=== PATIENT | male | born 1990 ===

== ENCOUNTER 2021-05-14 19:45 | Observation (INO) | payer SELFPAY ==
[~2021-05-14] VITALS: Ht 172 cm; Wt 85.2 kg
--- NOTE | 2021-05-14 19:55 | ED Fall/Injury ---
General Chief Complaint: Trauma EMS/Air Arrival Activat Stated Complaint: FALL Source: patient (PT SPEAKS FAIR BAHRAINI), EMS, spouse ( IN ROOM ON RETURN FROM CT) History of Present Illness Date Seen by Provider: May 14, 2021 Time Seen by Provider: 19:45 Initial Comments PT ARRIVES VIA EMS, CERVICAL COLLAR IN PLACE AND ON BACKBOARD PT HAS BEEN WORKING OUTSIDE SINCE 0600 THIS AM, CLEARING OFF A TREE FROM A ROOF, FROM RECENT STORM. PT WAS COMING DOWN LADDER, AND LADDER FELL OVER, PT FELL APPROXIMATELY 4 FEET FROM GROUND, LANDING ON HIS RIGHT SIDE HIT RIGHT SIDE OF HEAD, RIGHT SHOULDER AND RIGHT THIGH ON GROUND + LOSS OF CONSCIOUSNESS FOR 3 MINUTES, WAS WITNESSED BY CO-WORKERS PT WAS AWAKE AND ALERT WHEN EMS ARRIVED AT THE SCENE, BUT REPEATING THINGS MULTIPLE TIMES. PT C/O ALOT OF PAIN /HEADACHE TO RIGHT SIDE OF HEAD C/O ALOT OF PAIN TO RIGHT SHOULDER ALSO C/O PAIN TO RIGHT THIGH NO VISION CHANGES NO PARESTHESIAS OR MOTOR DEFICITS NO NECK OR BACK PAIN NO NAUSEA/VOMITING NO CHEST PAIN NO SHORTNESS OF BREATH NO ABDOMINAL PAIN LAST TETANUS VACCINE IS UNKNOWN PCP: NONE Allergies and Home Medications Allergies Coded Allergies: No Known Drug Allergies (Unverified , 05/14/21) Patient Home Medication List Home Medication List Reviewed: Yes Review of Systems Review of Systems Constitutional: no symptoms reported Eyes: No Symptoms Reported Ears, Nose, Mouth, Throat: no symptoms reported Respiratory: no symptoms reported; No short of breath Cardiovascular: no symptoms reported; No chest pain Gastrointestinal: no symptoms reported; No abdominal pain, No nausea, No vomiting Genitourinary: no symptoms reported Musculoskeletal: see HPI Skin: other (ABRASIONS TO RIGHT SHOULDER AND RIGHT THIGH) Psychiatric/Neurological: See HPI, Headache; Denies Numbness, Denies Paresthesia, Denies Seizure, Denies Tingling, Denies Weakness Past Lchbmat-Cmnauu-Nlwfuq Hx Past Med/Social Hx: Reviewed and Corrections made Patient Social History Alcohol Use: Denies Use Drug of Choice: DENIES Smoking Status: Never a Smoker Past Medical History Surgeries: Yes Vasectomy Respiratory: No Cardiac: No Neurological: No Genitourinary: No Gastrointestinal: No Musculoskeletal: No Endocrine: No Cancer: No Psychosocial: No Integumentary: No Blood Disorders: No Physical Exam Vital Signs Vital Signs - First Documented 05/14/21 20:00 Pulse 82 Resp 20 B/P (MAP) 151/81 (104) Pulse Ox 99 O2 Delivery Room Air Capillary Refill : Height, Weight, BMI Height: '" Weight: lbs. oz. kg; BMI Method: General Appearance: WD/WN, no apparent distress HEENT: PERRL/EOMI, normal ENT inspection, TMs normal, pharynx normal, other (SWELLING, ABRASION AND TENDERNESS TO RIGHT SAMARITAN AND PARIETAL SCALP) Neck: other (IN CERVICAL COLLAR ON ARRIVAL) Cardiovascular: normal peripheral pulses, regular rate, rhythm, no edema, no murmur Respiratory: chest non-tender, normal breath sounds, no respiratory distress, no accessory muscle use Gastrointestinal: normal bowel sounds, non tender, soft Back: normal inspection, no CVA tenderness, no vertebral tenderness Extremities: other (ABRASION AND BRUISING TO RIGHT SHOULDER, WITH DEFORMITY TO RIGHT SHOULDER WITH AC DROP OFF AND ANTERIOR FULLNESS, ALSO APPEARS TO HAVE SOME SWELLING, AND LIMITED ROM OF RIGHT SHOULDER, DISTAL MOTOR/SENSORY/VASCULAR INTACT. RIGHT LATERAL THIGH WITH ABRASION AND BRUISING, EARLY SWELLING AND MODERATE TENDERNESS. DISTAL MOTOR/SENSORY/VASCULAR INTACT. ) Neurologic/Psychiatric: supervisor hardboard II-XII nml as tested, no motor/sensory deficits, alert, normal mood/affect, oriented x 3 Skin: normal color (PT IS ), warm/dry, other (ABRASIONS AND ECCHYMOSIS TO RIGHT SHOULDER AND RIGHT LATERAL THIGH. ) Procedures/Interventions Splinting and Joint Reduction : Immobilizers: Large Shoulder Progress/Results/Core Measures Results/Orders Lab Results Laboratory Tests Test 05/14/21 19:30 05/14/21 21:09 Range/Units White Blood Count 7.0 4.3-11.0 10^3/uL Red Blood Count 4.08 L 4.30-5.52 10^6/uL Hemoglobin 13.7 13.3-17.7 g/dL Hematocrit 39 L 40-54 % Mean Corpuscular Volume 95 80-99 fL Mean Corpuscular Hemoglobin 34 25-34 pg Mean Corpuscular Hemoglobin Concent 36 32-36 g/dL Red Cell Distribution Width 12.6 10.0-14.5 % Platelet Count 325 130-400 10^3/uL Mean Platelet Volume 9.9 9.0-12.2 fL Sodium Level 140 135-145 MMOL/L Potassium Level 3.5 L 3.6-5.0 MMOL/L Chloride Level 104 98-107 MMOL/L Carbon Dioxide Level 25 21-32 MMOL/L Anion Gap 11 5-14 MMOL/L Blood Urea Nitrogen 19 H 7-18 MG/DL Creatinine 1.00 0.60-1.30 MG/DL Estimat Glomerular Filtration Rate > 60 BUN/Creatinine Ratio 19 Glucose Level 112 H 70-105 MG/DL Calcium Level 9.5 8.5-10.1 MG/DL Corrected Calcium 9.3 8.5-10.1 MG/DL Total Bilirubin 0.3 0.1-1.0 MG/DL Direct Bilirubin 0.1 0.0-0.3 MG/DL Indirect Bilirubin 0.2 MG/DL Aspartate Amino Transf (AST/SGOT) 34 5-34 U/L Alanine Aminotransferase (ALT/SGPT) 27 0-55 U/L Alkaline Phosphatase 95 40-136 U/L Total Protein 7.8 6.4-8.2 GM/DL Albumin 4.2 3.2-4.5 GM/DL Serum Alcohol < 10 <10 MG/DL Urine Color YELLOW Urine Clarity CLEAR Urine pH 7.5 5-9 Urine Specific [place] 1.015 L 1.016-1.022 Urine Protein NEGATIVE NEGATIVE Urine Glucose (UA) NEGATIVE NEGATIVE Urine Ketones NEGATIVE NEGATIVE Urine Nitrite NEGATIVE NEGATIVE Urine Bilirubin NEGATIVE NEGATIVE Urine Urobilinogen 0.2 < = 1.0 MG/DL Urine Leukocyte Esterase NEGATIVE NEGATIVE Urine RBC (Auto) 1+ H NEGATIVE Urine RBC 0-2 /HPF Urine WBC NONE /HPF Urine Squamous Epithelial Cells RARE /HPF Urine Crystals NONE /LPF Urine Bacteria NEGATIVE /HPF Urine Casts NONE /LPF Urine Mucus NEGATIVE /LPF Urine Culture Indicated NO Urine Opiates Screen NEGATIVE NEGATIVE Urine Oxycodone Screen NEGATIVE NEGATIVE Urine Methadone Screen NEGATIVE NEGATIVE Urine Propoxyphene Screen NEGATIVE NEGATIVE Urine Barbiturates Screen NEGATIVE NEGATIVE Ur Tricyclic Antidepressants Screen NEGATIVE NEGATIVE Urine Phencyclidine Screen NEGATIVE NEGATIVE Urine Amphetamines Screen NEGATIVE NEGATIVE Urine Methamphetamines Screen NEGATIVE NEGATIVE Urine Benzodiazepines Screen NEGATIVE NEGATIVE Urine Cocaine Screen NEGATIVE NEGATIVE Urine Cannabinoids Screen NEGATIVE NEGATIVE My Orders Orders - LIVKIRAA K DO Dipht,Pertuss(Acell),Tet Adult (Boostrix (05/14/21 20:00) Ct Head/Face/Cervical Wo (05/14/21 ) Ct Thoracic/Lumbar Spine Wo (05/14/21 ) Chest 1 View, Ap/Pa Only (05/14/21 ) Pelvis (05/14/21 ) Shoulder, Right, 3 Views (05/14/21 ) Hip, Right, 2 Views (05/14/21 ) Femur, Right, 2 Views (05/14/21 ) Cbc No Diff (05/14/21 19:30) Urinalysis (05/14/21 19:30) Alcohol (05/14/21 19:30) Comprehensive Metabolic Panel (05/14/21 19:30) Liver Panel (05/14/21 19:30) Drug Screen Stat (Urine) (05/14/21 20:57) Ed Iv/Invasive Line Start (05/14/21 20:57) Lactated Ringers (Lr 1000 Ml Iv Solution (05/14/21 21:00) Shoulder Immoblizer (05/14/21 21:19) Fentanyl Inj (Sublimaze Injection) (05/14/21 21:22) Medications Given in ED Current Medications Medications Dose Ordered Sig/Eder Route Start Time Stop Time Status Last Admin Dose Admin Diphtheria/ Tetanus/Acell Pertussis 0.5 ml ONCE ONCE IM 05/14/21 20:00 05/14/21 20:01 DC 05/14/21 21:00 0.5 ML Lactated Ringer's 1,000 ml @ 0 mls/hr Q0M ONCE IV 05/14/21 21:00 05/14/21 21:01 DC 05/14/21 21:24 0 MLS/HR Vital Signs/I&O 05/14/21 05/14/21 05/14/21 05/14/21 20:00 20:15 20:30 21:00 Pulse 82 88 84 81 Resp 20 20 21 14 B/P (MAP) 151/81 (104) 151/101 (118) Pulse Ox 99 96 96 98 O2 Delivery Room Air Room Air Room Air Room Air Progress Progress Note : Progress Note NO DETERIORATION IN PT'S CONDITION, BUT STILL REPEATING HIMSELF A LITTLE, FORGETFUL, AND SLIGHTLY UNCOOPERATIVE AT TIMES. Diagnostic Imaging Comments XRAYS--ALL PER RADIOLOGIST REPORTS AT 2105 CXR-- FINDINGS: Frontal view of the chest demonstrates the lungs to be clear. The heart, mediastinum, pulmonary vascularity and visualized bony thorax are normal. IMPRESSION: Negative chest. PELVIS-- FINDINGS: AP view of the pelvis demonstrates no fracture or diastasis. Degenerative changes are seen in the symphysis pubis. IMPRESSION: There is no acute finding. RIGHT SHOULDER-- FINDINGS: Three views of the right shoulder demonstrate normal ossification. No fracture or dislocation is seen. IMPRESSION: Negative right shoulder. RIGHT HIP-- FINDINGS: Two views of the right hip demonstrate normal ossification. No fracture or dislocation is present. IMPRESSION: Normal right hip. FINDINGS: Frontal and lateral views of the right femur demonstrate normal ossification. No fracture or dislocation is present. IMPRESSION: Negative right femur. RIGHT FEMUR-- Reviewed: Reviewed by Nm Departure Communication (Admissions) 2122--SPOKE WITH DR. DOWNS, TRAUMA SURGEON, ACCEPTS PT FOR ADMIT. WILL CONSULT ORTHOPEDIC SURGEON REGARDING SHOULDER INJURY Impression Primary Impression: Fall from ladder Additional Impressions: Concussion with loss of consciousness of 30 minutes or less Right shoulder injury Contusion of right thigh, initial encounter Abrasions of multiple sites Disposition: ADMITTED INPATIENT Condition: Stable Admissions Decision to Admit Reason: Admit from ER (Trauma) Decision to Admit/Date: May 14, 2021 Time/Decision to Admit Time: 21:25 BUNNY PECK DO May 14, 2021 19:55
[2021-05-14] MEDS ORDERED: TETANUS,DIPTH,PERTUSS P/F (BOOSTRIX) 0.5 ML VIAL IM ONE (20:00)
[2021-05-14 20:45] LABS: HEMATOCRIT 39 % (40-54); HEMOGLOBIN 13.7 g/dL (13.3-17.7); MEAN CORPUSCULAR HEMOGLOBIN 34 pg (25-34); MEAN CORPUSCULAR HGB CONC 36 g/dL (32-36); MEAN CORPUSCULAR VOLUME 95 fL (80-99); MEAN PLATELET VOLUME 9.9 fL (9.0-12.2); PLATELET COUNT 325 10^3/uL (130-400)
--- NOTE | 2021-05-14 20:59 | Diagnostic Imaging Report ---
INDICATION: Fell from a ladder. FINDINGS: Frontal view of the chest demonstrates the lungs to be clear. The heart, mediastinum, pulmonary vascularity and visualized bony thorax are normal. IMPRESSION: Negative chest. Dictated by: Dictated on workstation # [id number]
[2021-05-14] MEDS ORDERED: LACTATED RINGERS 1,000 ML IV ONE (21:00)
--- NOTE | 2021-05-14 21:00 | Diagnostic Imaging Report ---
INDICATION: Fell from a ladder, right hip pain. FINDINGS: Two views of the right hip demonstrate normal ossification. No fracture or dislocation is present. IMPRESSION: Normal right hip. Dictated by: Dictated on workstation # [id number]
--- NOTE | 2021-05-14 21:00 | Diagnostic Imaging Report ---
INDICATION: Fell from a ladder, pelvic pain. FINDINGS: AP view of the pelvis demonstrates no fracture or diastasis. Degenerative changes are seen in the symphysis pubis. IMPRESSION: There is no acute finding. Dictated by: Dictated on workstation # [id number]
--- NOTE | 2021-05-14 21:00 | Diagnostic Imaging Report ---
INDICATION: Fell from a ladder, right shoulder pain. FINDINGS: Three views of the right shoulder demonstrate normal ossification. No fracture or dislocation is seen. IMPRESSION: Negative right shoulder. Dictated by: Dictated on workstation # [id number]
[2021-05-14 21:04] LABS: ALANINE AMINOTRANSFERASE 27 U/L (0-55); ALBUMIN 4.2 GM/DL (3.2-4.5); ALKALINE PHOSPHATASE 95 U/L (40-136); BILIRUBIN,DIRECT 0.1 MG/DL (0.0-0.3); BILIRUBIN,INDIRECT 0.2 MG/DL; BILIRUBIN,TOTAL 0.3 MG/DL (0.1-1.0); BUN/CREATININE RATIO 19; CALCIUM 9.5 MG/DL (8.5-10.1); CARBON DIOXIDE 25 MMOL/L (21-32); CHLORIDE 104 MMOL/L (98-107); GFR ESTIMATED > 60; GLUCOSE 112 MG/DL (70-105); POTASSIUM 3.5 MMOL/L (3.6-5.0); SODIUM 140 MMOL/L (135-145); TOTAL PROTEIN 7.8 GM/DL (6.4-8.2)
--- NOTE | 2021-05-14 21:14 | Diagnostic Imaging Report ---
PROCEDURE: CT head, face, and cervical spine without contrast. TECHNIQUE: Auto Exposure Controls were utilized during the CT exam to meet ALARA standards for radiation dose reduction. INDICATION: Fell from a ladder. FINDINGS: CT head: Noncontrast CT scanning of the head demonstrates no mass effect, midline shift, hemorrhage or extra-axial fluid collection. No atrophic or ischemic change is present. Mastoid air cells are clear. No skull fracture is seen. A right scalp hematoma is present. CT cervical spine: Noncontrast CT scanning of the cervical spine demonstrates no fracture or subluxation. There is normal ossification. The disc spaces are of normal width. No stenosis is identified. Soft tissues appear normal. Lung apices are clear. CT facial bones: CT scanning of the facial bones demonstrates no fracture or diastasis. Temporomandibular joints are normally seated. Paranasal sinuses demonstrate minimal mucosal thickening in the right maxillary sinus. The soft tissues appear normal. IMPRESSION: 1. Normal intracranial findings. 2. There is a right scalp hematoma. 3. No fracture is identified. 4. Cervical spine appears normal. Dictated by: Dictated on workstation # [id number]
[2021-05-14 21:15] LABS: BILIRUBIN,URINE NEGATIVE (NEGATIVE); CLARITY,URINE CLEAR; COLOR,URINE YELLOW; GLUCOSE, URINE (UA) NEGATIVE (NEGATIVE); KETONES,URINE NEGATIVE (NEGATIVE); LEUKOCYTE ESTERASE ,URINE NEGATIVE (NEGATIVE); NITRITE,URINE NEGATIVE (NEGATIVE); PH,URINE 7.5 (5-9); PROTEIN,URINE NEGATIVE (NEGATIVE)
--- NOTE | 2021-05-14 21:16 | Diagnostic Imaging Report ---
INDICATION: Fell from a ladder. Patient is having right femur pain. FINDINGS: Frontal and lateral views of the right femur demonstrate normal ossification. No fracture or dislocation is present. IMPRESSION: Negative right femur. Dictated by: Dictated on workstation # [id number]
[2021-05-14 21:21] LABS: BACTERIA,URINE NEGATIVE /HPF; RBC,URINE 0-2 /HPF; SQUAMOUS EPITHELIAL CELL,UR RARE /HPF
--- NOTE | 2021-05-14 21:21 | Diagnostic Imaging Report ---
PROCEDURE: CT thoracic and lumbar spine without contrast. TECHNIQUE: All CT scans use one or more of the following dose optimizing techniques: automated exposure control, MA and/or KvP adjustment based on patient size and exam type or iterative reconstruction. INDICATION: Fell from a ladder, back pain. FINDINGS: CT lumbar spine: Noncontrast CT scanning of the lumbar spine demonstrates normal ossification. The disc spaces are of normal width. No fracture or subluxation is present. The surrounding soft tissues appear normal. CT thoracic spine: Examination demonstrates normal ossification. No fracture or subluxation is present. The disc spaces are of normal width. The visualized portions of the ribs appear normal. The surrounding soft tissues appear normal. The visualized portions of the lungs are clear. No fracture is present. IMPRESSION: Negative CT scan of the thoracic and lumbar spine. Dictated by: Dictated on workstation # [id number]
[2021-05-14] MEDS ORDERED: fentaNYL INJ 100 MCG/2 ML AMP IVP STA (21:22)
[2021-05-14 21:26] LABS: AMPHETAMINE SCREEN, URINE NEGATIVE (NEGATIVE); BARBITURATE SCREEN URINE NEGATIVE (NEGATIVE); BENZODIAZEPINES SCREEN URINE NEGATIVE (NEGATIVE); CANNABINOID SCREEN, URINE NEGATIVE (NEGATIVE); COCAINE SCREEN URINE NEGATIVE (NEGATIVE); METHADONE STAT NEGATIVE (NEGATIVE); METHAMPHETAMINE SCREEN URINE S NEGATIVE (NEGATIVE); OPIATE SCREEN URINE NEGATIVE (NEGATIVE); OXYCODONE STAT NEGATIVE (NEGATIVE); PROPOXYPHENE STAT NEGATIVE (NEGATIVE); TRICYCLIC ANTIDEPRESSANTS SCRE NEGATIVE (NEGATIVE)
[2021-05-14] MEDS ORDERED: ACETAMINOPHEN 500 MG TAB (TYLENOL) PO PRN (23:00)
[2021-05-14] MEDS ORDERED: ONDANSETRON 4 MG/2 ML (SDV) Z0FRAN IV PRN (23:00)
[2021-05-14] MEDS: LACTATED RINGERS 1,000 ML IV SCH (23:08)
[2021-05-14] MEDS: fentaNYL INJ 100 MCG/2 ML AMP IV PRN (23:08)
[2021-05-15] VITALS: BP 141/81
[2021-05-15] MEDS: fentaNYL INJ 100 MCG/2 ML AMP IV PRN ×3 (01:12→07:36)
[2021-05-15] MEDS: LACTATED RINGERS 1,000 ML IV SCH ×3 (03:54→13:09)
[2021-05-15 04:00] VITALS: BP 138/81
[2021-05-15 08:11] VITALS: BP 130/77
--- NOTE | 2021-05-15 09:51 | Consultation - Ortho ---
Consult - Ortho Subjective Date of Exam 05/15/21 Chief Complaint Fall from a ladder approximately 4 feet onto concrete HPI/Events since last exam Mr. Capps is a 31-year-old male who was helping clear a tree from the house yesterday afternoon when he fell from a ladder approximately 4 feet onto cement onto his right side. He was seen in the emergency room where he was evaluated and x-rayed noted to have no fractures. He was admitted for observation due to a head injury. He still having quite a bit of right shoulder and right thigh pain. He is right-hand dominant. He denies any previous injury to the shoulder or thigh. Medical, Surgical History Reviewed and no additions or changes Social History Reviewed and no additions or changes Family History Reviewed and no additions or changes Review of Systems Reviewed and no additions or changes Allergies: Coded Allergies: No Known Drug Allergies (Unverified , 05/14/21) Home Meds No Active Prescriptions or Reported Meds Objective Exam Constitutional: [] HEENT: [] Neck: []No pain with palpation Cardiovascular: [] Respiratory: [] Gastrointestinal: [] Genitourinary: [] Skin: [] Back/Spine: [No pain with palpation] Extremities: [Right shoulderswelling, bruising and abrasions are noted right upper arm. No deformity of the acromioclavicular joint. Pain with palpation of the acromioclavicular joint. No pain over the clavicle or sternoclavicular joint. No pain in the trapezius. Any motion of the shoulder causes shoulder pain. Difficult to assess stability or range of motion due to the patient's pain. No pain at the elbow with full motion. No pain in the forearm with pronation supination or palpation. No pain in the wrist or hand with palpation or range of motion. Normal sensation to the fingers and thumb with good cap refill good radial pulse. Right hip shows good motion without pain although there is pain in the thigh with gentle range of motion. No pain at the knee with palpation but with range of motion the there again is pain in the thigh. There is some bruising, swelling and abrasions anterior lateral thigh. No calf tenderness negative Homans. No pain at the ankle with full range of motion. Normal sensation of the foot and toes with good cap refill good pulses] Neurologic: [] Psychiatric: [] Hematologic/lymphatic/immunologic: [] Vital Signs Vital Signs Date Time Temp Pulse Resp B/P (MAP) Pulse Ox O2 Delivery O2 Flow Rate FiO2 05/15/21 08:11 36.4 69 18 130/77 (94) 97 Room Air 05/15/21 08:00 97 Room Air 05/15/21 06:52 70 05/15/21 04:00 36.2 76 18 138/81 (100) 98 Room Air 05/15/21 01:00 74 05/15/21 00:00 36.4 80 20 141/81 (101) 98 Room Air 05/14/21 23:50 75 05/14/21 23:13 Room Air 05/14/21 22:30 37.0 80 20 145/90 97 Room Air 05/14/21 22:00 11 150/90 (110) 97 Room Air 05/14/21 21:30 81 19 158/96 (116) 98 Room Air 05/14/21 21:00 81 14 151/101 (118) 98 Room Air 05/14/21 20:30 84 21 96 Room Air 05/14/21 20:15 88 20 96 Room Air 05/14/21 20:00 82 20 151/81 (104) 99 Room Air I & O 05/15/21 07:00 Intake Total 300 ml Balance 300 ml Lab Results Laboratory Tests 05/14/21 19:30: White Blood Count 7.0, Red Blood Count 4.08L, Hemoglobin 13.7, Hematocrit 39L, Mean Corpuscular Volume 95, Mean Corpuscular Hemoglobin 34, Mean Corpuscular Hemoglobin Concent 36, Red Cell Distribution Width 12.6, Platelet Count 325, Mean Platelet Volume 9.9, Sodium Level 140, Potassium Level 3.5L, Chloride Level 104, Carbon Dioxide Level 25, Anion Gap 11, Blood Urea Nitrogen 19H, Creatinine 1.00, Estimat Glomerular Filtration Rate > 60, BUN/Creatinine Ratio 19, Glucose Level 112H, Calcium Level 9.5, Corrected Calcium 9.3, Total Bilirubin 0.3, Direct Bilirubin 0.1, Indirect Bilirubin 0.2, Aspartate Amino Transf (AST/SGOT) 34, Alanine Aminotransferase (ALT/SGPT) 27, Alkaline Phosphatase 95, Total Protein 7.8, Albumin 4.2, Serum Alcohol < 10 05/14/21 21:09: Urine Color YELLOW, Urine Clarity CLEAR, Urine pH 7.5, Urine Specific [place] 1.015L, Urine Protein NEGATIVE, Urine Glucose (UA) NEGATIVE, Urine Ketones NEGATIVE, Urine Nitrite NEGATIVE, Urine Bilirubin NEGATIVE, Urine Urobilinogen 0.2, Urine Leukocyte Esterase NEGATIVE, Urine RBC (Auto) 1+H, Urine RBC 0-2, Urine WBC NONE, Urine Squamous Epithelial Cells RARE, Urine Crystals NONE, Urine Bacteria NEGATIVE, Urine Casts NONE, Urine Mucus NEGATIVE, Urine Culture Indicated NO, Urine Opiates Screen NEGATIVE, Urine Oxycodone Screen NEGATIVE, Urine Methadone Screen NEGATIVE, Urine Propoxyphene Screen NEGATIVE, Urine Barbiturates Screen NEGATIVE, Ur Tricyclic Antidepressants Screen NEGATIVE, Urine Phencyclidine Screen NEGATIVE, Urine Amphetamines Screen NEGATIVE, Urine Methamphetamines Screen NEGATIVE, Urine Benzodiazepines Screen NEGATIVE, Urine Cocaine Screen NEGATIVE, Urine Cannabinoids Screen NEGATIVE Imaging X-rays were reviewed of the right shoulder which shows no evidence of fracture, dislocation or acromioclavicular separation. No clavicle fracture. No proximal humeral fracture. X-rays of the pelvis, right hip and femur shows no evidence of fracture. Assessment and Plan Assessment Contusion/hematoma right shoulder and thigh Problem List Contusion/hematoma right shoulder and thigh Sprain of right acromioclavicular joint,First-degree Plan The patient is in a sling and continue this. I explained to him and his that these types of injuries will take several weeks to recover. There is no medication that is going to decrease the length of recovery. Pain medication and anti-inflammatories can be beneficial. Avoid lifting pushing and pulling with the right arm. Avoid excessive ambulation or standing with the right thigh injury. Increase activities as tolerated. Follow-up in the office in 2 weeks for recheck or sooner if he has problems Okay for discharge from orthopedic point of view Final Diagonsis First-degree sprain right acromioclavicular joint Contusion/hematoma right shoulder Contusion/hematoma right thigh Level of the visit: Level 3 EVERETT CAMPUZANO MD May 15, 2021 09:51
[2021-05-15 11:26] VITALS: BP 117/73
[2021-05-15] MEDS: HYDROcodone/APAP 5 MG/325 MG (LORTAB) TAB PO PRN ×2 (11:50→15:55)
--- NOTE | 2021-05-15 15:57 | History & Physical-Surgical ---
History of Present Illness History of Present Illness Reason for visit/HPI Chief complaint fall Patient is a 31-year-old male who was working on a ladder working on a house when he is approximately 4 foot ladder fell back and patient landed on his right side striking his head shoulder and right thigh. Patient had a loss of consciousness for approximately 3 minutes. He then awoke and was brought to the emergency department for further evaluation. Patient having pain in the right shoulder and thigh makes it lipid difficult to move. Nothing really seems to make it better. He currently is not having any neurological changes. Nursing reports no neurological changes overnight. Patient states his pain is moderate to severe at times. No radiation of pain. Patient denies any nausea vomiting fever sweats chills shortness of breath or chest pain. Patient has CT scan of the head face and C-spine which demonstrated no acute abnormality except for right scalp hematoma. Patient had a CT scan of the thoracic and lumbar spine without any acute fracture. Patient had a right shoulder chest pelvis and right femur x-rays which did not demonstrate any acute fractures or findings. Patient not having light sensitivity or any visual changes at this time. Patient is present with him at this time as well. Date of Admission May 14, 2021 at 21:25 Date Seen by a Provider: May 15, 2021 Time Seen by a Provider: 07:51 I consulted on this patient on 05/15/21 15:57 Attending Physician Debra Strickland DO Admitting Physician No,Local Physician Consult Allergies and Home Medications Allergies Coded Allergies: No Known Drug Allergies (Unverified , 05/14/21) Home Medications Docusate Sodium 100 Mg Capsule, 100 MG PO DAILY Prescribed by: DEBRA STRICKLAND on 05/15/21 1559 Hydrocodone/Acetaminophen 1 Each Tablet, 1 EACH PO Q4H PRN for PAIN-MODERATE (5- 7) Prescribed by: DEBRA STRICKLAND on 05/15/21 1559 Patient Home Medication List Home Medication List Reviewed: Yes Past Dfuzrmi-Puphpe-Vmqsaa Hx Patient Social History Drug of Choice: DENIES Smoking Status: Never a Smoker 2nd Hand Smoke Exposure: Yes Alcohol Use?: No Have you traveled recently?: No Immunizations Up To Date Tetanus Booster (TDap): Unknown Surgeries History of Surgeries: Yes Surgeries: Vasectomy Respiratory History of Respiratory Disorde: No Cardiovascular History of Cardiac Disorders: No Neurological History of Neurological Disord: No Genitourinary History of Genitourinary Disor: No Gastrointestinal History of Gastrointestinal Di: No Musculoskeletal History of Musculoskeletal Dis: No Endocrine History of Endocrine Disorders: No Cancer History of Cancer: No Psychosocial History of Psychiatric Problem: No Integumentary History of Skin or Integumenta: No Blood Transfusions History of Blood Disorders: No Reviewed Nursing Assessment Reviewed/Agree w Nursing PMH: Yes Family Medical History Significant Family History: No Pertinent Family Hx Review of Systems Constitutional: No chills, No diaphoresis EENTM: No vision loss, No mouth pain Respiratory: No cough, No dyspnea on exertion Cardiovascular: No chest pain, No palpitations Gastrointestinal: No abdominal pain, No nausea, No vomiting Genitourinary: No decreased output, No discharge Musculoskeletal: joint pain, muscle pain; No muscle cramps Skin: No change in color, No change in hair/nails Psychiatric/Neurological: Denies Anxiety, Denies Depressed, Denies Emotional Problems All Other Systems Reviewed Negative Unless Noted: Yes (Negative excepted noted.) Physical Exam Vital Signs Vital Signs - First Documented 05/14/21 05/14/21 20:00 22:30 Temp 37.0 Pulse 82 Resp 20 B/P (MAP) 151/81 (104) Pulse Ox 99 O2 Delivery Room Air Capillary Refill : Less Than 3 Seconds Height, Weight, BMI Height: '" Weight: lbs. oz. kg; 24.50 BMI Method: General Appearance: No Apparent Distress, WD/WN HEENT: PERRL/EOMI, Normal ENT Inspection, Other (Slight swelling right side of face) Neck: Non Tender, Supple Respiratory: Chest Non Tender, No Accessory Muscle Use, No Respiratory Distress Cardiovascular: Regular Rate, Rhythm, No JVD Gastrointestinal: No Pulsatile Mass, Non Tender, Soft Rectal: Deferred Back: No CVA Tenderness, No Vertebral Tenderness Extremity: Swelling, Other (Patient with right shoulder swelling anterolateral bruising and abrasion. 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 Patient was admitted for observation. Neurochecks of been negative. Patient's does have right shoulder and right thigh contusion negative x-rays orthopedic is consulted. Await orthopedic input. Since patient's not having neurological changes since admission and is present patient wanting to go home will arrange once orthopedics agrees. Patient was instructed no driving no electronics and provided concussion information until patient is cleared and off of any narcotics. Admission Status: Observation Assessment/Plan Fall from ladder approximately 4 feet Positive loss of consciousness Concussion Contusion of right shoulder and right thigh Patient is a 31-year-old male with a fall from ladder and positive loss of consciousness. Patient was admitted for observation. Neurochecks of been negative. Patient's does have right shoulder and right thigh contusion negative x-rays orthopedic is consulted. Await orthopedic input. Since patient's not having neurological changes since admission and is present patient wanting to go home will arrange once orthopedics agrees. Patient was instructed no driving no electronics and provided concussion information until patient is cleared and off of any narcotics. DEBRA STRICKLAND DO May 15, 2021 15:57
[2021-05-15] MEDS ORDERED: DOCU-143 PO (15:59)
[2021-05-15] MEDS ORDERED: ACHD5005 PO (15:59)
[2021-05-15 16:00] VITALS: BP 116/66
--- NOTE | 2021-05-15 16:02 | Discharge Inst-Simple/Standard ---
Discharge Inst-Standard Discharge Medications New, Converted or Re-Newed RX: Transmitted to Pharmacy Patient Instructions/Follow Up Plan of Care/Instructions/FU: Dr. Vallecillo in [place] [address] Strickland 2 weeks. Activity as Tolerated: No (No driving or any activity while taking pain m edication.) Discharge Diet: Regular Diet Other Inst to Patient Follow up Appt: Make appointment for [address] Vallecillo. Continue sling to right upper extremity. Dr. Strickland 2 weeks. Any change in condition be seen at that time. Symptoms to Report: Appetite Changes, Extremity Discoloration, Numbness/Tingling, Swelling Increased, Bleeding Excessive, Eyesight Changes, Pain Increased, Urine Color Change, Constipation(Persistent), Fever over 101 degree F, Pain/Pressure in chest, Urinating Difficulty, Cough Up/Vomit Blood, Heart Beat Irreg/Pounding, Pain/Pressure in jaw, Vaginal Bleeding Increase, Cramps in feet or legs, Lightheadedness, Pain/Pressure in shoulder, Diarrhea(Persistent), Memory Changes Suddenly, Questions/Concerns, Weight gain consecutive days, Dizziness/Fainting, Nausea/Vomiting, Shortness of Breath, Weight gain over 2 pounds If questions or concerns contact your physician Or seek help at emergency department. DEBRA STRICKLAND DO May 15, 2021 16:02
[2021-05-15 17:15] VITALS: BP 116/66
--- NOTE | 2021-05-16 12:36 | Physician Query-Final Dx ---
BOLIVAR PARKER 05/16/21 1236: Final Diagnosis Give Final Diagnosis Please give Final Diagnosis DEBRA DOWNS DO 05/22/21 1153: Final Diagnosis Give Final Diagnosis Fall from ladder approximately 4 feet Positive loss of consciousness Concussion Contusion of right shoulder and right thigh BOLIVAR PARKER May 16, 2021 12:36 DEBRA DOWNS DO May 22, 2021 11:53
== END 2021-05-15 15:58 | disposition home or self-care (01) ==
LOC: ER 19:50 → UNDOADMOB 21:25 → 4TH 21:25 → UNDODISOB 05-15 17:15
PROVIDERS: ADMIT Surgery; ATTEND Surgery
DX: S43.51XA Sprain of right acromioclavicular joint, initial encounter (principal); S40.011A Contusion of right shoulder, initial encounter; S70.11XA Contusion of right thigh, initial encounter; S49.91XA Unspecified injury of right shoulder and upper arm, initial encounter; T14.8XXA Other injury of unspecified body region, initial encounter; W11.XXXA Fall on and from ladder, initial encounter; Z79.899 Other long term (current) drug therapy; Z79.891 Long term (current) use of opiate analgesic; Z98.52 Vasectomy status
CPT/HCPCS: 70450; 70486; 71045; 72125; 72128; 72131; 72170; 73030; 73502; 73552; 80053; 80306; 81000; 82248; 85027; 90471; 96374; 99284; G0378; G0480; 36415; 80076; 80320; 90715

== ENCOUNTER → 2021-05-29 | Outpatient (CLI) | payer SELFPAY ==
[~2021-05-29] MED LIST: ACHD5005 PO; DOCU-143 PO
== END ==
LOC: ORTHO 10:23
PROVIDERS: ATTEND Orthopaedic Surgery
DX: S70.11XA Contusion of right thigh, initial encounter (principal); S40.011A Contusion of right shoulder, initial encounter; X58.XXXA Exposure to other specified factors, initial encounter
CPT/HCPCS: 99213